=== PATIENT | female | born 1965 | race Caucasian/White ===

== ENCOUNTER 2018-05-15 15:58 | Emergency (ER) | payer BC ==
[2018-05-15 18:17] VITALS: BP 139/94
--- NOTE | 2018-05-15 18:32 | UC ---
Skin Complaint HPI - HPI Summary HPI Summary: 53 YO FEMALE comes to clinic today with a chief complaint of rash. Rash started over the last day. This diffuse it's not itching. She is recently getting over an upper respiratory tract infection. She is concerned about the possibility of scarlet fever. States in the past she's had strep throat diagnosed by culture but not by rapid strep. The upper respiratory tract infection symptoms have been improving. Otherwise feels well. - History of Current Complaint Chief Complaint: UCGeneralIllness Time Seen by Provider: 05/15/18 18:22 Stated Complaint: RASH,FLU LIKE SYMPTOMS Hx Last Menstrual Period: 02/08/14 Pain Intensity: 0 - Allergy/Home Medications Allergies/Adverse Reactions: Allergies Allergy/AdvReac Type Severity Reaction Status Date / Time amoxicillin Allergy Rash Verified 05/15/18 18:18 cats,seasonal Allergy Congestion Uncoded 05/15/18 18:18 Home Medications: Home Medications Atorvastatin* [Lipitor*] 40 mg PO DAILY 05/15/18 [History Confirmed 05/15/18] Review of Systems Constitutional: Negative Skin: Rash - SEE HPI Eyes: Negative ENT: Nasal Discharge, Sinus Congestion Respiratory: Negative Cardiovascular: Negative Gastrointestinal: Negative Genitourinary: Negative Motor: Negative Neurovascular: Negative Musculoskeletal: Negative Neurological: Negative Psychological: Negative Is Patient Immunocompromised?: No All Other Systems Reviewed And Are Negative: Yes PMH/Surg Hx/FS Hx/Imm Hx - Additional Past Medical History Additional PMH: HX STREP PHARYNGITIS - Surgical History Surgical History: Yes Surgery Procedure, Year, and Place: 2 c-sections - Family History Known Family History: Positive: Unknown - Social History Occupation: Employed Full-time Alcohol Use: None Substance Use Type: None Smoking Status (MU): Never Smoked Tobacco Physical Exam Triage Information Reviewed: Yes Appearance: Well-Appearing, No Pain Distress, Well-Nourished Vital Signs: Initial Vital Signs Temp 99.1 F 05/15/18 18:12 Pulse 114 05/15/18 18:12 Resp 16 05/15/18 18:12 BP 139/94 05/15/18 18:12 Pulse Ox 100 05/15/18 18:12 Vital Signs Reviewed: Yes Eye Exam: Normal Eyes: Positive: Conjunctiva Clear ENT: Positive: Pharyngeal erythema, Nasal congestion, Nasal drainage, TMs normal Neck exam: Normal Neck: Positive: Supple Respiratory: Positive: Lungs clear, Normal breath sounds, No respiratory distress Cardiovascular: Positive: Tachycardia Abdominal Exam: Normal Abdomen Description: Positive: Nontender, Soft Bowel Sounds: Positive: Present Musculoskeletal Exam: Normal Musculoskeletal: Positive: Strength Intact Neurological Exam: Normal Neurological: Positive: Alert Psychological Exam: Normal Skin: Positive: Other - Diffuse flat blanching patchy erythematous rash over arms trunks and legs Course/Dx - Course Course Of Treatment: Patient feels well other than the rash. Scarlet fever as a possibility. Patient requests treatment for scarlet fever as she has had strep pharyngitis in the past but was only diagnosed by culture. We discussed positives and negatives of antibiotics and use an bacterial and viral infections. Also discussed that if she starts feeling ill or has any more difficulties with a rash she needs to get reevaluated right away. - Diagnoses Provider Diagnoses: RASH Discharge - Sign-Out/Discharge Documenting (check all that apply): Patient Departure All imaging exams completed and their final reports reviewed: No Studies - Discharge Plan Condition: Stable Disposition: HOME Prescriptions: Azithromyxin KAREN (NF) [Z-Karen (Zithromax) 250 mg tabs #6] 2 tab PO .TODAY, THEN 1 DAILY #6 tab Patient Education Materials: Acute Rash (ED) Forms: *Work Release Referrals: Everette Robledo MD [Primary Care Provider] - Additional Instructions: FOLLOW UP WITH YOUR DOCTOR IF NOT COMPLETELY IMPROVED. GET RECHECKED FOR ANY WORSENING OF YOUR CONDITION OR QUESTIONS OR CONCERNS. - Billing Disposition and Condition Condition: STABLE Disposition: Home
== END 2018-05-15 18:40 | disposition home or self-care (01) ==
LOC: UCCORT 15:58
DX: R21 Rash and other nonspecific skin eruption (principal); Z88.0 Allergy status to penicillin; Z91.048 Other nonmedicinal substance allergy status
CPT/HCPCS: 99201; G0463